=== PATIENT | female | born 1945 | race Caucasian/White ===

== ENCOUNTER 2019-10-30 06:32 | Day surgery (SDC) | payer MEDICARE, SELFPAY ==
--- NOTE | 2019-10-24 11:05 | EKG12_ITS ---
Test Reason : PRE OP Blood Pressure : / mmHG Vent. Rate : 070 BPM Atrial Rate : 070 BPM P-R Int : 144 ms QRS Dur : 088 ms QT Int : 450 ms P-R-T Axes : 022 024 001 degrees QTc Int : 486 ms Normal sinus rhythm Normal ECG Confirmed by MICHAEL BOUDREAUX, HENRIK ([id number]), editor publications PRICE CHASE ([id number]) on 10/27/2019 9:06:43 AM Referred By: Arnulfo Tolentino Confirmed By:HENRIK RODRIGUEZ MD
[2019-10-24 11:20] LABS: Hematocrit 43.1 % (37-47); Hemoglobin 13.9 g/dL (12.0-15.0); Mean Corp Hgb Conc 32.3 g/dL (32-36); Mean Corpuscular Volume 99.3 fL (81-99); Mean Platelet Vol. 9.6 fl (6.2-12.0); Platelet Count 170 K/mm3 (150-450); RBC Distribution Width CV 11.3 % (11.6-14.6); RBC Distribution Width SD 41.3 fl (35.1-43.9); Red Blood Count 4.34 M/mm3 (4.2-5.4); White Blood Count 5.2 K/mm3 (4.4-11.0)
[2019-10-24 11:42] LABS: Anion Gap 3 (5-15); BUN 21 mg/dL (7-18); BUN/Creat Ratio 17.9 RATIO (10-20); Calcium,Total 8.7 mg/dL (8.5-10.1); Chloride 110 mmol/L (98-107); Creatinine, Serum 1.17 mg/dL (0.55-1.02); EST Glomerular Filtration Rate 48 mL/min (>60); Est Glom Filt Rate - Afr Amer 58 mL/min (>60); Glucose 114 mg/dL (74-106); Potassium 4.5 mmol/L (3.5-5.1); Sodium Level 141 mmol/L (136-145)
--- NOTE | 2019-10-25 19:09 | HP.PCM_ITS ---
Problem List (1) Chronic venous insufficiency Status: Chronic (2) Varicose veins with inflammation Status: Chronic (3) Leg pain, right Status: Chronic (4) Right leg swelling Status: Chronic History of Present Illness Date of Admission: 10/30/19 Chief Complaint: Chronic venous insufficiency, varicose veins with inflammation, leg pain, leg swelling?right lower extremity The patient is a 74 year old F [] female with a longstanding history of chronic venous disease. The patient suffers from chronic venous insufficiency, varicose veins with inflammation, leg pain, and leg swelling in her lower extremities. Presently, her right lower extremity is more severely affected than the left. Patient initially presented approximately 15 years ago with severe chronic venous symptoms in both lower extremities. She has undergone multiple corrective vein procedures, and has implemented conservative treatment measures relative to her venous disease for many years. She underwent endovenous laser ablation of the left great saphenous vein with microphlebectomy of left lower extremity varicose veins on February 14, 2006. She underwent endovenous laser ablation of the right great saphenous vein and microphlebectomy of right lower extremity varicose veins on July 12, 2006. Endovenous laser ablation of an incompetent left calf inside sales lead vein was performed on March 04, 2009. Patient subsequently underwent multiple, serial sessions of injection sclerotherapy. She presented once again with progressive venous symptoms in her lower extremities in September 2018. Following evaluation and implementation of prolonged conservative treatment measures, patient subsequently underwent VenaSeal Closure of a segment of the left great saphenous vein and the left small saphenous vein on April 24, 2019. Since that time, she has been implementing conservative treatment measures, which have included leg elevation, avoidance of idle standing and sitting, graduated compression stockings, weight control measures, active lifestyle, and anti-inflammatory medications. Despite these measures, the patient continues to have pain and discomfort in her right lower extremity which is associated with persisting large varicosities. Past Medical History Past Medical History (Chronic Problems): Chronic Problems Chronic venous insufficiency (Chronic) Varicose veins with inflammation (Chronic) Leg pain, right (Chronic) Right leg swelling (Chronic) Allergies No Known Allergies Allergy (Verified 10/23/19 09:48) Home Medications: Ambulatory Orders Medication Instructions Recorded Atenolol [Tenormin (beta Nakul)] 25 mg PO QHS 10/23/19 Juice Plus 4 tab PO DAILY 10/23/19 Lorazepam [Ativan] 1 mg PO QHS 10/23/19 Oxybutynin [Ditropan] 5 mg PO QHS 10/23/19 Surgical History: - - The patient has undergone multiple vein procedures in the past, as are listed above. 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: - - The patient is a Ab0 Smoking Status: Former smoker Tobacco Use: Non-smoker Alcohol: Occasional Drugs: None - *Family History Paternal History Items: - - Patient's father at the age of 50 from hepatitis and liver failure secondary to a blood transfusion Maternal History Items: - - Patient's mother at the age of 86, of old age Review of Systems Constitutional: Denies: Chills, Fever, Weight Change HEENT: Denies: Head Aches, Sinus Congestion, Sinus Drainage Cardiovascular: Denies: Chest Pain, Palpitations Respiratory: Denies: Cough, Shortness of breath at rest, Sputum production Gastrointestinal: Denies: Abdominal Pain, Nausea, Vomiting Genitourinary: Denies: Dysuria Musculoskeletal: Denies: Joint Pain, Joint Tenderness Skin: Denies: Rash, Wounds Neurological: Denies: Numbness, Tingling, Focal weakness Psychiatric: Denies: Anxiety, Depression, Homicidal Ideations, Suicidal Ideations Hematologic/ Lymphatic: Denies: Easy Bruising, Easy Bleeding VTE Information - Inpt Only VTE Present on Admission: No VTE Mechan Device Prophylaxis: SCD's - Left VTE Pharm Prophylaxis ordered?: Yes - Physical Exam General: Alert, Oriented x3, Cooperative, No apparent distress, Well developed, Well nourished HEENT: Atraumatic, PERRLA, EOMI, Normocephalic Neck: Supple, No JVD, Negative Carotid Bruits, Negative Hepatojugular Reflux, No Nuchal Rigidity, Trachea Midline Lungs: Clear to auscultation, Normal air movement, No rhonchi, No wheeze, No rales Cardiovascular: Regular rate, Regular Rhythm, Normal S1, Normal S2, No murmurs, No Ectopic Activity Abdomen: Bowel Sounds Present, Soft, Non Tender Extremities: No clubbing, No cyanosis, No edema, Capillary Refill Less than 3 Seconds, No Calf Tenderness, - - Multiple large varicosities are noted in the right lower extremity. There are no open wounds or ulcerations. Skin: No rashes, No breakdown Musculoskeletal: No Tenderness to Palpation of Joints or Extremities, No Muscle Wasting Neurological: Cranial nerves II-XII grossly intact, Neuro grossly intact Psych/Mental Status: Normal Affect, Appropriate, Alert and oriented to time, place, person, mood and affect Assessment/Plan This is a 74-year-old female with a longstanding history of chronic venous disease and associated symptoms. She has undergone multiple prior vein procedures in both lower extremities. These procedures are as documented above. She has no history of thrombophlebitis in the past. She has implemented conservative treatment measures for many years, including recently. These measures have included leg elevation, avoidance of idle standing and sitting, graduated compression stockings, active lifestyle, weight control measures, [id number] analgesics, etc. Despite these measures, the patient has remained symptomatic, with symptoms which have adversely affected daily activities, quality of life, and job functions. The options of management have been fully explained. Stab phlebectomy (microphlebectomy) has been presented as an option of management. The indications and risks of the procedure have been discussed with the patient in detail. The potential benefits have been explained. Appropriate expectations have been thoroughly discussed. The patient wishes to proceed with elective microphlebectomy of right lower extremity varicose veins. The indications and risks of the procedure have been discussed in detail. Patient has indicated her desire to proceed. Patient is to be admitted for the purpose of elective outpatient surgery.
[2019-10-30] VITALS (7 sets, daily range): BP systolic 118–148; BP diastolic 68–85; PULSE 47–67; RESP 14–16; TEMP 36–36.5; O2SAT 96–100; BMI 21.1
--- NOTE | 2019-10-30 | MISC_PTH ---
PATIENT: HOLGER [place] [facility] [place][id number] AGE/SX: 74/F ROOM: RE10/30/[address]: Dr. Arnulfo Tolentino MD : 1945 BED: DIS: 10/30/2019 SPEC #: [id number] RECD: 10/30/19 10:36 STATUS: GREGORIO REQ #: [id number] MANJIT: 10/30/19 00:[address]: Arnulfo Tolentino DEPT: SURGICAL PATHOLOGY RECD BY: Leon Badillo ENTERED: 10/30/19 10:36 SP TYPE: [facility] [place] DR: Dr. Mario Alarcon MD Tissues: Vein, NOS Procedures: Surgery Specimen Level III HEADER OPERATION: Microphlebectomy leg PRE-OP DIAGNOSIS: Chronic venous insufficiency; varicose veins with inflammation; right leg pain and swelling TISSUE SUBMITTED: Varicose veins right leg MICROSCOPIC DIAGNOSIS Varicose veins of right leg, microphlebectomy: Ectatic vascular segments consistent with varicose veins. AM:denis 10/31/19 MICROSCOPIC DESCRIPTION Slides are reviewed. GROSS DESCRIPTION Received in fixative is one container labeled with the patient's name and designated varicose veins right leg. The specimen consists of multiple variable sized tubular fragments of neal soft tissue that in aggregate measure 5 x 2.5 x 0.3 cm and 1-5 cm in length and 0.1-0.2 cm in diameter. Crown Attacher tissue is submitted in one cassette. / SJ:denis 10/30/19 TC:5 CPT: 87928
[2019-10-30] MEDS: Enoxaparin 30 MG/0.3 ML Syringe SC (07:00)
[2019-10-30] MEDS: Lactated Ringers 1,000 ML 150 ML IV (07:03)
[2019-10-30] MEDS: Cefazolin 2 GM in 0.9% Normal Saline 100 ML IV (07:28)
--- NOTE | 2019-10-30 10:03 | DCINST_ITS ---
Discharge Diet: No Restrictions Discharge Activity: May Not Drive May shower in (days): 2 Weight Bearing Status: Weight bearing as tolerated Lifting Restrictions: 10 pounds Keep extremity elevated above heart level: Right Leg Call your doctor if you observe: Shortness of breath, Fainting spells, Chest pain, Prolonged hiccoughing, Uncontrolled pain Suture Line Care: Avoid Pulling/Pushing Remove Dressing in (days):: 2 - Then rewrap leg with James daily from base of toes to upper thigh. Allergies/Adverse Reactions: Allergies No Known Allergies Allergy (Verified 10/23/19 09:48) Medications to take at Discharge Atenolol [Tenormin (beta Nakul)] 25 mg PO QHS 10/23/19 Juice Plus 4 tab PO DAILY 10/23/19 Lorazepam [Ativan] 1 mg PO QHS 10/23/19 Oxybutynin [Ditropan] 5 mg PO QHS 10/23/19 Primary Care Physician: Mario Alarcon MD [Primary Care Provider] - Test Results: Test results from this visit will be discussed in further detail at your follow- up appointment, if applicable. Please Follow Up With: Arnulfo Tolentino MD - Call [phone] to schedule a followup appointment. When: 10-14 days
--- NOTE | 2019-10-31 19:39 | OP.PCM_ITS ---
Problem List (1) Chronic venous insufficiency Status: Chronic (2) Varicose veins with inflammation Status: Chronic (3) Leg pain, right Status: Chronic (4) Right leg swelling Status: Chronic Report of Operation Date of Procedure: 10/30/19 Pre-Operative Diagnosis: Chronic venous insufficiency, Varicose veins with inflammation, Leg pain, Leg swelling - Right lower extremity Post-Operative Diagnosis: Chronic venous insufficiency, Varicose veins with inflammation, Leg pain, Leg swelling - Right lower extremity Surgery/Procedure Performed:: Stab phlebectomy (microphlebectomy) of right lower extremity varicose veins (51 incisions) Description of Surgical Findings:: As above production 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 She suffers from chronic venous insufficiency, varicose veins with inflammation, leg pain, and leg swelling in her right lower extremity. She presented approximately 15 years ago with severe chronic venous symptoms in both lower extremities. She has undergone multiple prior vein procedures, including the following: Endovenous laser ablation of the left great saphenous vein with microphlebectomy of left lower extremity varicose veins; endovenous laser ablation of the right great saphenous vein and microphlebectomy of right lower extremity varicose veins; endovenous laser ablation of an incompetent left calf chemical analytical sampler vein. She has also undergone multiple sessions of injection sclerotherapy. In recent months, she has had progressive symptoms in her right lower extremity, associated with the large, bulging superficial varicose veins in that limb. Despite many months of conservative treatment, including leg elev ation, avoidance of idle standing and sitting, graduated compression stockings, weight-control measures, active lifestyle, and anti-inflammatory medications, the patient remained symptomatic, with symptoms that interfere with daily activities, quality of life, and job functions. The implications of the patient's venous disease, and the options of management were discussed with the patient in detail. The indications and risks of microphlebectomy of right lower extremity varicose veins were discussed with the patient thoroughly. The appropriate preprocedure consent process was undertaken. The varicose veins in the patient's right extremity were marked with indelible ink preoperatively with the patient in the standing position. She was then brought to the operating suite, placed supine upon the operating table, where general anesthesia was administered by the anesthesia staff. The patient's right lower extremity was prepped and draped in the appropriate sterile manner. The patient was placed in mild Trendelenburg position. Attention was directed to the multiple varicosities in the right lower extremity which had been marked with the patient in the standing position preoperatively. The microphlebectomy procedure was performed in standard fashion. In each case, a small stab incision was created overlying the varicosity using an 18-gauge hypodermic needle. A phlebectomy hook was then used to deliver the varicose vein through the incision, and the vein was divided and avulsed for several centimeters in each direction when possible. In each case, manual pressure was applied to the phlebectomy site to achieve hemostasis. The procedure was repeated multiple times at each of the marked sites, and a total of 51 incisions were required for complete phlebectomy of the marked varicose veins. After assuring satisfactory hemostasis, the incisions were approximated using Cavilon and Steri-Strips. Dry sterile gauze dressings were applied over each of the incisions, and the leg was wrapped from the base of the toes to the upper thigh with Kerlix, followed by James wrap. The blood loss for the procedure was minimal. The sponge, needle, and instrument counts at the end of the procedure were correct. The patient tolerated the procedure well and was transported from the operating room to the post-anesthesia care unit in stable condition. - Complications None - Admit VTE Documentation VTE Present on Admission: No VTE Mechan Device Prophylaxis: SCD's - Left VTE Pharm Prophylaxis ordered?: Yes
== END 2019-10-30 12:23 | disposition home or self-care (01) ==
LOC: SDC 06:33 → AC 06:35
PROVIDERS: Anesthesiology; PCP Internal Medicine; Referring Provider Surgery; Visit Provider Surgery
PROC: (CPT 37765; principal; 2019-10-30 07:15)
DX: I83.11 Varicose veins of right lower extremity with inflammation (principal); M79.89 Other specified soft tissue disorders; M79.604 Pain in right leg; Z87.891 Personal history of nicotine dependence
CPT/HCPCS: 01520; 37765; 36415; 80048; 85027; 87635; 88304; 93005; 94799; J7120; J2405; U0003